=== PATIENT | male | born 1985 | race American Indian/Alaskan Native ===

== ENCOUNTER 2020-03-03 15:23 | Emergency (ER) | payer SELFPAY ==
--- NOTE | 2020-03-03 16:06 | Event Note ---
ED Screening Note Date of service: 03/03/20 Time: 16:06 ED Screening Note: Patient complains of dizziness and weakness x6 days Denies headache or chest pain Denies prior medical history This initial assessment/diagnostic orders/clinical plan/treatment(s) is/are subject to change based on patients health status, clinical progression and re- assessment by fellow clinical providers in the ED. Further treatment and workup at subsequent clinical providers discretion. Patient/guardian urged not to elope from the ED as their condition may be serious if not clinically assessed and managed. Initial orders include: EKG Labs
[2020-03-03 16:43] LABS: Bilirubin,Urine NEG (Negative); Blood,Urine NEG (Negative); Color,Urine Amber (Yellow); Hyaline Casts,Urine 1 /LPF; Mucus,Urine 1+ /HPF
[2020-03-03 17:49] LABS: Basophils # (Auto) 0.1 K/mm3 (0.0-0.1); Basophils % (Auto) 0.8 % (0.0-1.8); Eosinophils % (Auto) 0.3 % (0.0-4.3); Hematocrit 46.9 % (35.5-45.6); Hemoglobin 16.3 gm/dl (11.8-15.2); Lymphocytes # (Auto) 1.3 K/mm3 (1.2-5.4); Lymphocytes % (Auto) 11.5 % (13.4-35.0); Mean Corpuscular HGB Conc 35 % (32-34); Mean Corpuscular Volume 94 fl (84-94); Monocytes # (Auto) 1.2 K/mm3 (0.0-0.8); Monocytes % (Auto) 10.4 % (0.0-7.3); Platelet Count 502 K/mm3 (140-440); Red Blood Count 4.98 M/mm3 (3.65-5.03); Red Cell Distribution Width 13.3 % (13.2-15.2)
[2020-03-03 18:02] LABS: Alanine Aminotransferase 146 units/L (7-56); Albumin 3.7 g/dL (3.9-5); BUN/Creatinine Ratio 26; Blood Urea Nitrogen 29 mg/dL (9-20); Calcium 9.5 mg/dL (8.4-10.2); Hemolysis Index 26
[2020-03-03] MEDS ORDERED: SODIUM CHLORIDE 0.9% 1000 ML 1,000 ML IV ONE (18:50)
[2020-03-03] MEDS ORDERED: IBUPROFEN 600 MG TAB PO ONE (18:50)
--- NOTE | 2020-03-03 19:13 | Emergency Department Report ---
ED General Adult HPI - General Chief complaint: Dizziness Stated complaint: NAUSEA Time Seen by Provider: 03/03/20 16:05 Source: patient (Poor historian) Mode of arrival: Ambulatory Limitations: No Limitations - History of Present Illness Initial comments: The patient was evaluated in the emergency department for symptoms described in the history of present illness. He/she was evaluated in the context of the global COVID-19 pandemic, which necessitated consideration that the patient might be at risk for infection with the virus that causes COVID-19. Institutional protocols and algorithms that pertain to the evaluation of patients at risk for COVID-19 are in a state of rapid change based on information released by regulatory bodies including the CDC and federal and state organizations. These policies and algorithms were followed during the p [facility]'s care in the emergency department. Please note that these policies, procedures and recommendations changed on a rapid basis. 34-year-old obese male presents to the emergency room states that his body is sick. He reports that he will sometimes have abdominal pain and then when he goes to sleep it would get better and then you have side pain. He admits to dizziness and states that his head feels like it spinning. Patient states that when it happens he feels like he cannot stand for a long time. Patient states the symptoms started on Sunday 4 days ago. Patient denies no fever no chills no nausea no vomiting and no dysuria. He admits to a cough no shortness of breath or difficulty breathing. States he is eating well drinking well. Does not take any medications on a daily basis but did take a vitamin B this morning. 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 Denies any past medical history does not take any medications on a daily basis and has no known drug allergies. Patient Onset/Timin -: days(s) Severity scale (0 -10): 4 Consistency: intermittent Improves with: none Worsens with: none Associated Symptoms: cough, nausea/vomiting (No vomiting), weakness. denies: fever/chills, shortness of breath Treatments Prior to Arrival: none - Related Data Previous Rx's Medication Instructions Recorded Last Taken Type Azithromycin [Zithromax Z-RADHIKA] 250 mg PO DAILY 5 Days #6 tab 03/03/20 Unknown Rx Allergies Allergy/AdvReac Type Severity Reaction Status Date / Time No Known Allergies Allergy Unverified 03/03/20 15:59 ED Review of Systems ROS: Stated complaint: NAUSEA Other details as noted in HPI Comment: All other systems reviewed and negative ED Past Medical Hx - Past Medical History Previous Medical History?: No - Surgical History Past Surgical History?: No - Medications Home Medications: Home Medications Medication Instructions Recorded Confirmed Last Taken Type Azithromycin [Zithromax Z-RADHIKA] 250 mg PO DAILY 5 Days #6 tab 03/03/20 Unknown Rx ED Physical Exam - General Limitations: No Limitations General appearance: alert, in no apparent distress - Head Head exam: Present: atraumatic, normocephalic - Eye Eye exam: Present: normal appearance - ENT ENT exam: Present: mucous membranes moist - Neck Neck exam: Present: normal inspection - Respiratory Respiratory exam: Present: normal lung sounds bilaterally. Absent: respiratory distress - Cardiovascular Cardiovascular Exam: Present: regular rate, normal rhythm. Absent: systolic murmur, diastolic murmur, rubs, gallop - GI/Abdominal GI/Abdominal exam: Present: soft, tenderness (Left upper quadrant). Absent: distended - Extremities Exam Extremities exam: Present: normal inspection, full ROM - Back Exam Back exam: Present: normal inspection, full ROM - Neurological Exam Neurological exam: Present: alert, oriented X3 - Psychiatric Psychiatric exam: Present: normal affect, normal mood - Skin Skin exam: Present: warm, dry, intact, normal color. Absent: rash ED Course Vital Signs 03/03/20 16:01 Temperature 99.0 F Pulse Rate 119 H Respiratory 18 Rate Blood Pressure 152/85 O2 Sat by Pulse 98 Oximetry ED Medical Decision Making - Lab Data Result diagrams: 03/03/20 17:24 03/03/20 17:24 - Radiology Data Radiology results: report reviewed Referring Physician:SONYA ERNANDEZPatient Name:FARHAD LUCEROPatient ID:[id number] of :[id number]:MaleAccession:[id number] Date:[id number] Status:Finalized Findings [facility] [address] [place] [address] XRay Report Signed Patient: FARHAD LUCERO MR#: [id number] : 1985 Acct:[id number] Age/Sex: 34 / M ADM Date: 03/03/20 Loc: ED Attending Dr: Ordering Physician: PILY ESPOSITO Date of Service: 03/03/20 Procedure(s): XR chest routine 2V Accession Number(s): [id number] cc: PILY ESPOSITO Fluoro Time In Minutes: CHEST 2 VIEWS INDICATION: Dizziness. Shortness of breath. COMPARISON: None. FINDINGS: Support devices: None. Heart: Within normal limits. Lungs/Pleura: No acute air space or interstitial disease. No significant pleural effusion. IMPRESSION: No acute findings. Signer Name: Enrico Garcia MD Signed: 03/03/2020 7:41 PM Workstation Name: [id number] Transcribed By: ES Dictated By: Enrico Garcia MD Electronically Authenticated By: Enrico Garcia MD Signed Date/Time: 03/03/201940 DD/ 39 TD/TT: Referring Physician:SONYA ERNANDEZPatient Name:FARHAD LUCEROPatient ID:[id number] of :[id number]:MaleAccession:[id number] Date:3787-25-89Irfhwe Status:[place] [address] Cat Scan Report Signed Patient: FARHAD LUCERO MR#: [id number] : 1985 Acct:[id number] Age/Sex: 34 / M ADM Date: 03/03/20 Loc: ED Attending Dr: Ordering Physician: PILY ESPOSITO Date of Service: 03/03/20 Procedure(s): CT abdomen pelvis w con Accession Number(s): [id number] cc: PILY ESPOSITO CT abdomen pelvis w con INDICATION: Abdominal pain low-grade fever and tenderness. TECHNIQUE: All CT scans at this location are performed using the following dose modulation technique: Automated exposure control. CONTRAST: Omnipaque 300, 100 cc IV injection. COMPARISON: None available. CT ABDOMEN: Evaluation of the lung bases demonstrates mild parenchymal opacity at the left lung base. The parenchymal organs are unremarkable in appearance. Negative for abdominal mass, fluid or inflammation. The bowel is not dilated or thickened. A normal appendix is identified. CT PELVIS: Negative for pelvic mass, fluid or inflammation. IMPRESSION: 1. Suspect left basilar pneumonia. 2. No abnormality identified within the abdomen or pelvis. Signer Name: Enrico Garcia MD Signed: 03/03/2020 8:46 PM Workstation Name: [id number] Transcribed By: AURORA Dictated By: Enrico Garcia MD Electronically Authenticated By: Enrico Garcia MD Signed Date/Time: 03/03/202045 DD/ 40 TD/TT: - Medical Decision Making 34-year-old obese male presents to the emergency room states that his body is sick. He reports that he will sometimes have abdominal pain and then when he goes to sleep it would get better and then you have side pain. He admits to dizziness and states that his head feels like it spinning. Patient states that when it happens he feels like he cannot stand for a long time. Patient states the symptoms started on Sunday 4 days ago. Patient denies no fever no chills no nausea no vomiting and no dysuria. He admits to a cough no shortness of breath or difficulty breathing. States he is eating well drinking well. Does not take any medications on a daily basis but did take a vitamin B this morning. 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 Denies any past medical history does not take any medications on a daily basis and has no known drug allergies. Chest x-ray is negative for any acute findings. Labs are stable. CT abdomen and pelvis ordered secondary to patient having left upper quadrant pain with palpation. Patient was mildly tachycardic. CT scan shows suspected left lower lobe pneumonia. Patient be discharged home on azithromycin. Encouraged to drink plenty of fluids take ibuprofen or Tylenol for pain. Follow-up with the primary care provider. Critical care attestation.: If time is entered above; I have spent that time in minutes in the direct care of this critically ill patient, excluding procedure time. ED Disposition Clinical Impression: Pneumonia Disposition: DC-01 TO HOME OR SELFCARE Is pt being admited?: No Does the pt Need Aspirin: No Condition: Stable Instructions: Bacterial Pneumonia (ED), Community-Acquired Pneumonia, Adult, [id number] Additional Instructions: Complete antibiotics as prescribed. Increase your water intake by 3 L daily. Follow-up with your primary care provider. Prescriptions: Azithromycin [Zithromax Z-RADHIKA] 250 mg PO DAILY 5 Days #6 tab Referrals: PRIMARY CARE, [Primary Care Provider] - 3-5 Days [facility] [Provider Group] - 3-5 Days Forms: Work/School Release Form(ED)
--- NOTE | 2020-03-03 19:42 | XRay Report ---
CHEST 2 VIEWS INDICATION: Dizziness. Shortness of breath. COMPARISON: None. FINDINGS: Support devices: None. Heart: Within normal limits. Lungs/Pleura: No acute air space or interstitial disease. No significant pleural effusion. IMPRESSION: No acute findings. Signer Name: Enrico Garcia MD Signed: 03/03/2020 7:41 PM Workstation Name: [id number]
--- NOTE | 2020-03-03 20:46 | Cat Scan Report ---
CT abdomen pelvis w con INDICATION: Abdominal pain low-grade fever and tenderness. TECHNIQUE: All CT scans at this location are performed using the following dose modulation technique: Automated exposure control. CONTRAST: Omnipaque 300, 100 cc IV injection. COMPARISON: None available. CT ABDOMEN: Evaluation of the lung bases demonstrates mild parenchymal opacity at the left lung base. The parenchymal organs are unremarkable in appearance. Negative for abdominal mass, fluid or inflamma tion. The bowel is not dilated or thickened. A normal appendix is identified. CT PELVIS: Negative for pelvic mass, fluid or inflammation. IMPRESSION: 1. Suspect left basilar pneumonia. 2. No abnormality identified within the abdomen or pelvis. Signer Name: Enrico Garcia MD Signed: 03/03/2020 8:46 PM Workstation Name: [id number]
[2020-03-03 22:59] VITALS: BP 124/63
== END 2020-03-03 21:15 | disposition home or self-care (01) ==
LOC: ED 15:23
DX: J18.9 Pneumonia, unspecified organism (principal); Z79.899 Other long term (current) drug therapy
CPT/HCPCS: 36415; 71046; 74177; 80053; 81001; 84484; 85025; 87086; 93005; 96360; 99284; J7030; Q9967